=== PATIENT | male | born 1975 | race Caucasian/White ===

== ENCOUNTER 2024-09-05 14:19 | Emergency (ER) | payer OTHER ==
[~2024-09-05] VITALS: Ht 175.3 cm; Wt 86.2 kg
[2024-09-05 14:27] VITALS: PULSE 80; RESP 17; TEMP 98.4
[2024-09-05 16:32] VITALS: BP 119/68; PULSE 74; RESP 18; TEMP 98.3; O2SAT 98
== END 2024-09-05 16:01 | disposition home or self-care (01) ==
LOC: ER 14:53
DX: R33.9 Retention of urine, unspecified (principal); R10.30 Lower abdominal pain, unspecified; Z98.890 Other specified postprocedural states
CPT/HCPCS: 51700; 87086; 99283